=== PATIENT | male | born 1940 | race Hispanic/Latino ===

== ENCOUNTER → 2017-04-30 | Outpatient (CLI) | payer OTHER ==
[~2017-04-30] MED LIST: AMLO5TAB2 PO; ASPI-1181 PO; ASPI81TA40 PO; ATOR20TA65 PO; COMBIGAN OU; GLAUCOMA DROPS OU; HYDR25TA PO; XALA2.5OS OU
== END | disposition home or self-care (01) ==
LOC: SHCH 10:39
PROVIDERS: ATTEND Internal Medicine Cardiovascular Disease
DX: I65.23 Occlusion and stenosis of bilateral carotid arteries (principal)
CPT/HCPCS: 93306; 93880

== ENCOUNTER → 2017-06-11 | Outpatient (CLI) | payer OTHER ==
[~2017-06-11] VITALS: Ht 162.6 cm; Wt 59.0 kg
[~2017-06-11] MED LIST changes: +REGADENOSON 0.4 MG/5 ML PF SYG IVP SCH
== END ==
LOC: SHCH 11:03
PROVIDERS: ATTEND Internal Medicine Cardiovascular Disease
DX: I20.9 Angina pectoris, unspecified (principal)
CPT/HCPCS: 78452; 93017; 96374; A9500 ×2; J2785

== ENCOUNTER 2017-06-24 05:51 | Day surgery (SDC) | payer OTHER ==
[2017-06-22 12:27] VITALS: BP 168/66
[2017-06-22 13:05] LABS: BASOPHILS % (AUTO) 0.5 % (0.0-5.0); EOSINOPHILS % (AUTO) 3.7 % (0.0-8.0); HEMATOCRIT 43.7 % (42-54); LYMPHOCYTES % (AUTO) 27.1 % (21.0-51.0); MEAN CORPUSCULAR HEMOGLOBIN 28.2 pg (27.0-33.0); MEAN CORPUSCULAR VOLUME 85.6 fL (79-99); MONOCYTES % (AUTO) 9.2 % (3.0-13.0); NEUTROPHILS % (AUTO) 59.5 % (40.0-77.0); PLATELET COUNT (AUTO) 343 K/uL (130-400); RED CELL DISTRIBUTION WIDTH 13.3 % (11.0-15.5); WHITE BLOOD COUNT (AUTO) 9.3 K/uL (4.8-10.8)
[2017-06-22 13:16] LABS: CREATININE 0.9 mg/dL (0.5-1.5); POTASSIUM 3.4 mmol/L (3.5-5.1)
[2017-06-22 13:28] LABS: INR 1.02 (0.85-1.15); PARTIAL THROMBOPLASTIN TIME 28.4 SEC (26.3-35.5); PROTHROMBIN TIME 10.5 SEC (9.6-11.6)
[2017-06-22 14:00] LABS: APPEARANCE,URINE Clear (CLEAR); BILIRUBIN,URINE Negative (NEGATIVE); COLOR,URINE Yellow (YELLOW); GLUCOSE, URINE (UA) Negative (NEGATIVE); KETONES,URINE Negative (NEGATIVE); LEUKOCYTE ESTERASE ,URINE Negative (NEGATIVE); NITRATE,URINE Negative (NEGATIVE); OCCULT BLOOD,URINE Small (NEGATIVE); PROTEIN,URINE POS 1+ (NEGATIVE); UROBILINOGEN,URINE 0.2 mg/dL (0.2-1.0)
[2017-06-22 14:05] LABS: BACTERIA,URINE Rare /HPF (None Seen); RBC,URINE 0-1 /HPF (0-1); SQUAMOUS EPITHELIAL CELL,UR Rare /HPF (0-2); WBC,URINE 0-1 /HPF (0-1)
[2017-06-24] VITALS (10 sets, daily range): BP systolic 121–181; BP diastolic 40–82
[~2017-06-24] VITALS: Ht 162.6 cm; Wt 58.8 kg
[~2017-06-24 05:51] MED LIST changes: -ASPI81TA40 PO; -COMBIGAN OU; -REGADENOSON 0.4 MG/5 ML PF SYG IVP SCH; -XALA2.5OS OU
[2017-06-24] MEDS ORDERED: SODIUM CHLORIDE 0.9% 1000ML 1,000 ML IV ONE (07:39)
[2017-06-24] MEDS ORDERED: HEPARIN SODIUM 1000UNIT/ML 10ML VIAL ONE (07:40)
[2017-06-24] MEDS ORDERED: ISOVUE-300 100 ML VIAL IV ONE (07:40)
[2017-06-24] MEDS ORDERED: LIDOCAINE HCL 2% 20ML ONE (07:40)
[2017-06-24] MEDS ORDERED: POTASSIUM CHLORIDE 20 MEQ ERTAB PO SCH (08:40)
[2017-06-24] MEDS ORDERED: NITROGLYCERIN 5 MG/ML 10 ML VIAL IV ONE (10:18)
[2017-06-24] MEDS ORDERED: MIDAZOLAM HCL 1 MG/ML 2ML VIAL ONE (10:32)
[2017-06-24] MEDS ORDERED: SODIUM CHLORIDE 0.9% 1000ML 1,000 ML IV SCH (11:18)
[2017-06-24] MEDS ORDERED: ACETAMINOPHEN-CODEINE 300/30MG TAB PO PRN (11:30)
[2017-06-24] MEDS ORDERED: HYDRALAZINE HCL 20 MG/ML VIAL IV PRN (11:30)
[2017-06-24] MEDS ORDERED: DEXTROSE 50%-WATER 50 ML DISP.SYRIN IV PRN (11:30)
[2017-06-24] MEDS ORDERED: GLUCAGON 1MG KIT 1 MG ML IM PRN (11:30)
== END 2017-06-24 15:21 | disposition home or self-care (01) ==
LOC: DAH 05:51
PROVIDERS: ATTEND Internal Medicine Cardiovascular Disease
DX: I65.23 Occlusion and stenosis of bilateral carotid arteries (principal); I25.118 Atherosclerotic heart disease of native coronary artery with other forms of angina pectoris; Z79.82 Long term (current) use of aspirin; Z79.899 Other long term (current) drug therapy; I10 Essential (primary) hypertension; E78.4 Other hyperlipidemia; M19.90 Unspecified osteoarthritis, unspecified site; Z98.890 Other specified postprocedural states
CPT/HCPCS: 36222; 36415 ×2; 71045; 75710; 80048; 81001; 84132; 85025; 85610; 85730; 93005; 99152; 99153 ×3; A4606; C1760; C1769; C1894 ×2; J1644 ×2; J2250; J3490 ×2; J7030; Q9967; 36223

== ENCOUNTER 2017-07-13 10:30 | Inpatient (IN) | payer OTHER ==
[~2017-07-13] VITALS: Ht 162.6 cm; Wt 58.8 kg
[~2017-07-13 10:30] MED LIST changes: -ASPI-1181 PO; -GLAUCOMA DROPS OU; -HYDR25TA PO
[2017-07-13 11:16] VITALS: BP 166/68
[2017-07-13 11:30] LABS: BASOPHILS % (AUTO) 0.8 % (0.0-5.0); EOSINOPHILS % (AUTO) 3.8 % (0.0-8.0); HEMATOCRIT 41.9 % (42-54); LYMPHOCYTES % (AUTO) 21.9 % (21.0-51.0); MEAN CORPUSCULAR HEMOGLOBIN 28.8 pg (27.0-33.0); MEAN CORPUSCULAR HGB CONC 33.9 g/dL (32.0-36.0); MEAN CORPUSCULAR VOLUME 84.9 fL (79-99); MONOCYTES % (AUTO) 7.2 % (3.0-13.0); NEUTROPHILS % (AUTO) 66.3 % (40.0-77.0); PLATELET COUNT (AUTO) 289 K/uL (130-400); RED BLOOD CELL COUNT(AUTO) 4.93 MIL/uL (4.50-6.20); RED CELL DISTRIBUTION WIDTH 13.1 % (11.0-15.5); WHITE BLOOD COUNT (AUTO) 8.9 K/uL (4.8-10.8)
[2017-07-13 11:38] LABS: CREATININE 0.8 mg/dL (0.5-1.5); POTASSIUM 3.8 mmol/L (3.5-5.1)
[2017-07-13] MEDS ORDERED: XALA2.5OS OU (11:40)
[2017-07-13] MEDS ORDERED: COMBIGAN OU (11:40)
[2017-07-13] MEDS ORDERED: ASPI81TA40 PO (11:40)
[2017-07-13] MEDS ORDERED: HYDR25TA PO (11:40)
[2017-07-13] MEDS ORDERED: CEFAZOLIN SODIUM 1 GM VIAL IVP SCH (15:15)
[2017-07-16] VITALS (23 sets, daily range): BP systolic 111–148; BP diastolic 48–73
[2017-07-16] MEDS ORDERED: LACTATED RINGERS 1000ML 1,000 ML IV ONE (06:36)
[2017-07-16] MEDS ORDERED: BUPIVACAINE/PF 0.25% 30ML VIAL IJ ONE (06:47)
[2017-07-16] MEDS ORDERED: EPINEPHRINE 1 MG/ML AMPULE ONE (06:47)
[2017-07-16] MEDS ORDERED: BACITRACIN 50,000 UNIT VIAL ONE (06:48)
[2017-07-16] MEDS ORDERED: THROMBIN-JMI 20000 UNIT KIT TP ONE (06:48)
[2017-07-16] MEDS ORDERED: LIDOCAINE PF 2% 5ML ABBOJECT ONE (06:49)
[2017-07-16] MEDS ORDERED: MIDAZOLAM HCL 1 MG/ML 2ML VIAL ONE (06:49)
[2017-07-16] MEDS ORDERED: PROPOFOL 10 MG/ML 20ML VIAL IV ONE (06:49)
[2017-07-16] MEDS ORDERED: GLYCOPYRROLATE 0.2 MG/ML 5 ML VIAL ONE ×2 (06:49→08:25)
[2017-07-16] MEDS ORDERED: NEOSTIGMINE 5MG/5ML SYR IV ONE ×2 (06:49→08:25)
[2017-07-16] MEDS ORDERED: ONDANSETRON HCL 4 MG/2 ML VIAL ONE (06:49)
[2017-07-16] MEDS ORDERED: DEXAMETHASONE SOD PHOSPHATE 10MG/ML 1ML VIAL ONE (06:49)
[2017-07-16] MEDS ORDERED: FENTANYL CITRATE PF 50 MCG/1 ML 2ML VIAL ONE ×2 (06:50→07:53)
[2017-07-16] MEDS ORDERED: HEPARIN SODIUM 1000UNIT/ML 10ML VIAL ONE (07:43)
[2017-07-16] MEDS ORDERED: MANNITOL 20% 500ML BAG 500 ML IV ONE (07:47)
[2017-07-16] MEDS ORDERED: PHENYLEPHRINE HCL 10 MG/ML 1ML VIAL IV ONE (08:24)
[2017-07-16] MEDS ORDERED: ROCURONIUM BROMIDE 10MG/1ML 5ML VL ONE (08:24)
[2017-07-16] MEDS ORDERED: SUCCINYLCHOLINE CHLORIDE 20 MG/ML 10 ML VIAL ONE (08:24)
[2017-07-16] MEDS ORDERED: ARTIFICIAL TEARS 3.5 GM OINTMENT ONE (08:24)
[2017-07-16] MEDS ORDERED: LIDOCAINE HCL 4% LTA SOL 4 ML VIAL ONE (08:25)
[2017-07-16] MEDS: HEPARIN SODIUM 5000 UNIT/ML 5,000 UNIT in LACTATED RINGERS 1000ML 1,000 ML IV SCH ×2 (09:25→21:04)
[2017-07-16] MEDS: DEXAMETHASONE SOD PHOSPHATE 4 MG/ML 1ML VIAL IVP SCH ×3 (09:30→21:10)
[2017-07-16] MEDS ORDERED: MORPHINE SULFATE 2 MG/ML 1ML SYG IVP PRN (09:30)
[2017-07-16] MEDS ORDERED: HYDROCODONE/ACETAMINOPHEN 5/325 MG TAB PO PRN (09:30)
[2017-07-16] MEDS ORDERED: CEFAZOLIN SODIUM 1 GM VIAL IVP SCH (14:00)
[2017-07-16] MEDS ORDERED: CEFAZOLIN 1GM / D5W 50ML 50 ML IV SCH (14:00)
[2017-07-16] MEDS ORDERED: ATORVASTATIN CALCIUM 20 MG TABLET PO SCH (21:00)
[2017-07-16] MEDS ORDERED: LATANOPROST 2.5 ML DROPS OU SCH (21:00)
[2017-07-17] VITALS (12 sets, daily range): BP systolic 106–139; BP diastolic 45–57
[2017-07-17] MEDS: DEXAMETHASONE SOD PHOSPHATE 4 MG/ML 1ML VIAL IVP SCH ×2 (03:10→08:34)
[2017-07-17] MEDS ORDERED: HYDROCHLOROTHIAZIDE 25 MG TABLET PO SCH (09:00)
[2017-07-17] MEDS ORDERED: ASPIRIN 325 MG TABLET PO SCH (09:00)
[2017-07-17] MEDS ORDERED: ASPIRIN 81 MG EC TAB PO SCH (09:00)
[2017-07-17] MEDS ORDERED: AMLODIPINE BESYLATE 5 MG TAB PO SCH (09:00)
== END 2017-07-17 12:30 | disposition home or self-care (01) | DRG 39 ==
LOC: DAHIP 07-16 05:37 → EDSTATUS 07-16 10:30 → 2BH 07-16 10:41
PROVIDERS: ADMIT Neurological Surgery; ATTEND Neurological Surgery
PROC: 03CH0ZZ Extirpation of Matter from Right Common Carotid Artery, Open Approach (ICD-10-PCS; principal; 2017-07-16 07:29)
DX: I65.21 Occlusion and stenosis of right carotid artery (principal); E78.00 Pure hypercholesterolemia, unspecified; I10 Essential (primary) hypertension; M19.90 Unspecified osteoarthritis, unspecified site
CPT/HCPCS: 36415; 80048; 85025; 88304; 88311; 93005; A4218; A4344; J0171; J0330; J0690; J1100; J1644; J2001; J2250; J2370; J2405; J2704; J2710; J3010; J3490; J7030; J7040; J7120

== ENCOUNTER → 2017-11-26 | Outpatient (CLI) | payer OTHER ==
[~2017-11-26] MED LIST changes: -AMLO5TAB2 PO; +AMLO5TAB7 PO; +ASPI81TA40 PO; +COMBIGAN OU; +HYDR25TA PO; +XALA2.5OS OU
== END | disposition home or self-care (01) ==
LOC: SHCH 10:43
PROVIDERS: ATTEND Internal Medicine Cardiovascular Disease
DX: I65.21 Occlusion and stenosis of right carotid artery (principal)
CPT/HCPCS: 93880

== ENCOUNTER → 2018-07-27 | Outpatient (CLI) | payer OTHER ==
[~2018-07-27] MED LIST changes: -AMLO5TAB7 PO; +AMLO5TAB9 PO
== END | disposition home or self-care (01) ==
LOC: SHCH 10:52
PROVIDERS: ATTEND Internal Medicine Cardiovascular Disease
DX: I65.23 Occlusion and stenosis of bilateral carotid arteries (principal)
CPT/HCPCS: 93880

== ENCOUNTER 2018-11-08 06:33 | Day surgery (SDC) | payer OTHER ==
[2018-11-04 13:42] VITALS: BP 172/73
[2018-11-04 14:06] LABS: BASOPHILS % (AUTO) 0.2 % (0.0-5.0); EOSINOPHILS % (AUTO) 1.8 % (0.0-8.0); HEMATOCRIT 38.4 % (42-54); LYMPHOCYTES % (AUTO) 14.7 % (21.0-51.0); MEAN CORPUSCULAR HEMOGLOBIN 29.4 pg (27.0-33.0); MEAN CORPUSCULAR HGB CONC 33.8 g/dL (32.0-36.0); MEAN CORPUSCULAR VOLUME 86.8 fL (79-99); MONOCYTES % (AUTO) 8.8 % (3.0-13.0); NEUTROPHILS % (AUTO) 74.5 % (40.0-77.0); PLATELET COUNT (AUTO) 248 K/uL (130-400); RED BLOOD CELL COUNT(AUTO) 4.42 MIL/uL (4.50-6.20); RED CELL DISTRIBUTION WIDTH 12.9 % (11.0-15.5); WHITE BLOOD COUNT (AUTO) 10.8 K/uL (4.8-10.8)
[2018-11-04 14:08] LABS: APPEARANCE,URINE Clear (CLEAR); BILIRUBIN,URINE Negative (NEGATIVE); COLOR,URINE Yellow (YELLOW); GLUCOSE, URINE (UA) Negative (NEGATIVE); KETONES,URINE Negative (NEGATIVE); LEUKOCYTE ESTERASE ,URINE Negative (NEGATIVE); NITRATE,URINE Negative (NEGATIVE); OCCULT BLOOD,URINE Trace (NEGATIVE); PROTEIN,URINE Trace mg/dL (NEGATIVE); UROBILINOGEN,URINE 0.2 mg/dL (0.2-1.0)
[2018-11-04 14:12] LABS: CREATININE 0.8 mg/dL (0.5-1.5)
[2018-11-04 14:19] LABS: BACTERIA,URINE Rare /HPF (None Seen); RBC,URINE 0-1 /HPF (0-1); SQUAMOUS EPITHELIAL CELL,UR Rare /HPF (0-2); WBC,URINE 0-1 /HPF (0-1)
[2018-11-04 14:23] LABS: INR 0.99 (0.85-1.15); PARTIAL THROMBOPLASTIN TIME 28.2 SEC (26.3-35.5); PROTHROMBIN TIME 10.4 SEC (9.6-11.6)
--- NOTE | 2018-11-04 14:27 | NUR ---
CRITICAL VALUE POTASSIUM OF 3.0 REPORTED TO [facility] FOR DR. COLUNGA, PT TAKING HCTZ. BUN/CREAT ALSO REPORTED. PER SERVANDO, HE WILL CALL ME BACK.
[2018-11-04 14:46] VITALS: BP 154/70
[2018-11-08] VITALS (11 sets, daily range): BP systolic 112–161; BP diastolic 62–75
[~2018-11-08] VITALS: Ht 160 cm; Wt 56.8 kg
[~2018-11-08 06:33] MED LIST changes: +ACET-2743 PO; +NAPROXEN PO
--- NOTE | 2018-11-08 07:20 | NUR ---
PATIENT ARRIVED PATIENT ARRIVED TO DAY PATIENT ACCOMPANIED BY SPOUSE. PATIENT AAOX3, RESPIRATIONS UNLABORED, VITAL SIGNS STABLE. DENIES ANY PAIN AT THIS TIME. PROCEDURE AND PHYSICIAN VERIFIED WITH PATIENT. PROCEDURE EXPLAINED TO PATIENT AND PATIENT VERBALIZED UNDERSTANDING. ALL QUESTIONS/CONCERNS ADDRESSED. HOSPITAL ROUTINE EXPLAINED TO PATIENT AND PATIENT'S SPOUSE INSTRUCTED TO WAIT IN ROOM DURING PROCEDURE SO THAT DR COLUNGA CAN SPEAK WITH HER AFTER PROCEDURE IS COMPLETE, PATIENT'S SPOUSE VERBALIZED UNDERSTANDING.
[2018-11-08 07:40] LABS: CREATININE 0.7 mg/dL (0.5-1.5); POTASSIUM 3.7 mmol/L (3.5-5.1)
[2018-11-08] MEDS ORDERED: SODIUM CHLORIDE 0.9% 1000ML 1,000 ML IV SCH ×2 (08:00→10:14)
[2018-11-08] MEDS ORDERED: HEPARIN SODIUM 1000UNIT/ML 10ML VIAL ONE (09:09)
[2018-11-08] MEDS ORDERED: IODIXANOL 320 MG/ML 100 ML VIAL ONE (09:09)
[2018-11-08] MEDS ORDERED: NITROGLYCERIN 5 MG/ML 10 ML VIAL IV ONE (09:09)
[2018-11-08] MEDS ORDERED: LIDOCAINE HCL 2% 20ML ONE (09:10)
--- NOTE | 2018-11-08 09:15 | NUR ---
PATIENT TRANSFERRED PATIENT TRANSFERRED TO SENIOR ECOLOGIST VIA BED BY GEOVANNY VO. FAMILY INSTRUCTED TO STAY AT BEDSIDE IN ORDER TO SPEAK WITH DR COLUNGA AFTER PROCEDURE. HUSSAIN (DAUGHTER) WILL BE IN ROOM WAITING FOR PATIENT TO RETURN.
[2018-11-08] MEDS ORDERED: FENTANYL CITRATE PF 50 MCG/1 ML 2ML VIAL ONE (09:29)
[2018-11-08] MEDS ORDERED: MIDAZOLAM HCL 1 MG/ML 2ML VIAL ONE (09:29)
[2018-11-08] MEDS ORDERED: ASPIRIN 81MG TAB.CHEW ONE (10:08)
[2018-11-08] MEDS ORDERED: CLOPIDOGREL BISULFATE 300 MG TAB ONE (10:08)
[2018-11-08] MEDS ORDERED: HYDRALAZINE HCL 20 MG/ML VIAL IV PRN (10:15)
[2018-11-08] MEDS ORDERED: DEXTROSE 50%-WATER 50 ML DISP.SYRIN IV PRN (10:15)
[2018-11-08] MEDS ORDERED: GLUCAGON 1MG KIT 1 MG ML IM PRN (10:15)
[2018-11-08] MEDS ORDERED: NITROGLYCERIN 0.4 MG SL TAB SL PRN (10:15)
--- NOTE | 2018-11-08 13:50 | NUR ---
DISCHARGE INSTRUCTIONS DISCHARGE INSTRUCTIONS PROVIDED TO PATIENT AND PATIENT'S DAUGHTER, BOTH VERBALIZED UNDERSTANDING. FOLLOW UP APPOINTMENTS PROVIDED AND FEMORAL SITE CARE INSTRUCTIONS PROVIDED. PRESCRIPTIONS PROVIDED AND MED LIST PROVIDED. PATIENT INSTRUCTED TO CONTINUE HOME MEDICATIONS. PRESCRIPTION FOR PLAVIX PROVIDED AND INSTRUCTIONS ON PLAVIX WERE PROVIDED WELL. PATIENT AND FAMILY MEMBER VERBALIZED UNDERSTANDING. ALL QUESTIONS/CONCERNS ADDRESSED.
--- NOTE | 2018-11-08 15:05 | NUR ---
PATIENT DISCHARGED PATIENT DISCHARGED FROM HOSPITAL VIA WHEELCHAIR AND ACCOMPANIED BY SPOUSE AND FAMILY MEMBERS. PATIENT ASSISTED INTO PRIVATE VEHICLE BY MADAN LOZANO.
== END 2018-11-08 15:05 | disposition home or self-care (01) ==
LOC: DAH 06:33
PROVIDERS: ATTEND Internal Medicine Cardiovascular Disease
DX: I77.1 Stricture of artery (principal); I73.9 Peripheral vascular disease, unspecified; I70.8 Atherosclerosis of other arteries; G45.8 Other transient cerebral ischemic attacks and related syndromes; E11.9 Type 2 diabetes mellitus without complications; I10 Essential (primary) hypertension; E78.5 Hyperlipidemia, unspecified; M19.90 Unspecified osteoarthritis, unspecified site; Z79.82 Long term (current) use of aspirin; Z79.899 Other long term (current) drug therapy; Z79.01 Long term (current) use of anticoagulants; Z85.46 Personal history of malignant neoplasm of prostate; Z98.890 Other specified postprocedural states; Z82.49 Family history of ischemic heart disease and other diseases of the circulatory system; Z83.3 Family history of diabetes mellitus
CPT/HCPCS: 36415 ×2; 37236; 71045; 75710; 80048 ×2; 81001; 85025; 85610; 85730; 93005; 96360; 96361; A4215; A4216; A4221; A4222; A4223 ×3; A4606; C1760; C1769; C1876; C1893 ×2; C1894 ×2; J1644 ×2; J2250; J3010; J3490 ×2; J7030; Q9967; 36215; 36225; 99156; 99157

== ENCOUNTER → 2019-11-01 | Outpatient (CLI) | payer OTHER | END | disposition home or self-care (01) | LOC: SHCH 09:12 | PROVIDERS: ATTEND Internal Medicine Cardiovascular Disease | DX: I65.23 Occlusion and stenosis of bilateral carotid arteries (principal); I71.9 Aortic aneurysm of unspecified site, without rupture | CPT/HCPCS: 93880 ==

== ENCOUNTER → 2020-05-08 | Outpatient (CLI) | payer OTHER ==
[~2020-05-08] MED LIST changes: +AMLO-257 PO; -AMLO5TAB9 PO
== END | disposition home or self-care (01) ==
LOC: SHCH 09:18
PROVIDERS: ATTEND Internal Medicine Cardiovascular Disease
DX: I77.1 Stricture of artery (principal)
CPT/HCPCS: 93880

== ENCOUNTER → 2020-09-13 | Outpatient (CLI) | payer OTHER | END | disposition home or self-care (01) | LOC: SHCH 11:05 | PROVIDERS: ATTEND Internal Medicine Cardiovascular Disease | DX: R06.09 Other forms of dyspnea (principal) | CPT/HCPCS: 93306; 93356 ==

== ENCOUNTER → 2020-09-21 | Outpatient (CLI) | payer OTHER ==
[~2020-09-21] VITALS: Ht 160 cm; Wt 55.3 kg
[~2020-09-21] MED LIST changes: +REGADENOSON 0.4 MG/5 ML PF SYG IVP SCH
== END | disposition home or self-care (01) ==
LOC: SHCH 08:49
PROVIDERS: ATTEND Internal Medicine Cardiovascular Disease
DX: I25.10 Atherosclerotic heart disease of native coronary artery without angina pectoris (principal); R07.9 Chest pain, unspecified; I20.9 Angina pectoris, unspecified
CPT/HCPCS: 78452; 93017; 96374; A9500 ×2; J2785

== ENCOUNTER → 2021-07-30 | Outpatient (CLI) | payer OTHER ==
[~2021-07-30] MED LIST changes: -REGADENOSON 0.4 MG/5 ML PF SYG IVP SCH
== END | disposition home or self-care (01) ==
LOC: OIH 10:01
PROVIDERS: ATTEND Internal Medicine Cardiovascular Disease
DX: I65.23 Occlusion and stenosis of bilateral carotid arteries (principal)
CPT/HCPCS: 93880

== ENCOUNTER → 2023-09-02 | Outpatient (CLI) | payer OTHER | END | disposition home or self-care (01) | LOC: SHCH 14:08 | PROVIDERS: ATTEND Internal Medicine Cardiovascular Disease | DX: I08.8 Other rheumatic multiple valve diseases (principal); I77.9 Disorder of arteries and arterioles, unspecified; R09.89 Other specified symptoms and signs involving the circulatory and respiratory systems; R94.31 Abnormal electrocardiogram [ECG] [EKG] | CPT/HCPCS: 93306; 93880 ==